=== PATIENT | female | born 1950 | race Caucasian/White ===

== ENCOUNTER → 2017-12-31 08:07 | Outpatient (CLI) | payer OTHER, SELFPAY ==
[2017-09-19 22:00] VITALS: BMI 38.7
--- NOTE | 2017-12-31 | DI.MRI.S_ITS ---
PROCEDURE: MR LUMBAR SPINE WO CON INDICATIONS: LUMBAR RADICULOPATHY TECHNIQUE: Noncontrast sagittal T1 spin echo and T2 fast echo, sagittal STIR, axial T1 and T2 fast spin echo through the lumbar spine. In cases with scoliosis, additional coronal T2 fast spin echo may be performed. COMPARISON: None. FINDINGS: Image quality: Excellent. Alignment and Curvature: There is trace anterolisthesis of L4 on L5. Bone Marrow: Marrow is of normal overall signal. No acute vertebral body compression fractures. Spinal Cord: Conus medullaris terminates at the L2 level. Visualized cord demonstrates normal signal and size. Paraspinous Soft Tissues: No paravertebral masses. Discs: Mild desiccation is present throughout the lumbar spine. L1-L2: No disc bulge, spinal stenosis or foraminal narrowing. L2-L3: No disc bulge, spinal stenosis or foraminal narrowing. L3-L4: Mild disc bulge with moderate to severe spinal stenosis. There is prominent epidural lipomatosis. Mild left and minimal right foraminal narrowing is present. Facet and ligamentum flavum hypertrophy are present. L4-L5: Mild disc bulge with moderate to severe spinal stenosis. Epidural lipomatosis is present. There is moderate right and minimal left foraminal narrowing with facet and ligamentum flavum hypertrophy. L5-S1: Mild disc bulge with mild spinal stenosis. Mild epidural lipomatosis. Mild right foraminal narrowing with facet and ligamentum flavum hypertrophy. IMPRESSION: 1. Multiple early degenerative changes 2. Moderate to severe spinal stenosis is present L3-4 and L4-5 secondary to disc bulge, facet/ligamentum flavum arthropathy and marked contributing effect of epidural lipomatosis. 3. Foraminal narrowing is most prominent L4-5 secondary to facet arthropathy. Dictated by: Alondra Haddad M.D. on 12/31/2017 at 11:48 Approved by: Alondra Haddad M.D. on 12/31/2017 at 11:56
== END ==
PROVIDERS: PCP Family Medicine; Visit Provider Orthopaedic Surgery
DX: M51.36 Other intervertebral disc degeneration, lumbar region (principal); M99.73 Connective tissue and disc stenosis of intervertebral foramina of lumbar region; M48.061 Spinal stenosis, lumbar region without neurogenic claudication
CPT/HCPCS: 72148

== ENCOUNTER → 2019-12-27 14:00 | Outpatient (CLI) | payer OTHER, SELFPAY ==
[2017-09-19 22:00] VITALS: BMI 38.7
[2019-12-29 09:08] LABS: COVID19 Sendout Not Detected (Not Detected)
== END ==
PROVIDERS: PCP Family Medicine; Visit Provider Physician Assistant
DX: Z11.59 Encounter for screening for other viral diseases (principal)
CPT/HCPCS: 87635

== ENCOUNTER 2019-12-30 10:40 | Day surgery (SDC) | payer OTHER, SELFPAY ==
[2017-09-19 22:00] VITALS: BMI 38.7
[2019-12-30] VITALS (7 sets, daily range): BP systolic 111–150; BP diastolic 60–78; PULSE 51–60; RESP 10–16; TEMP 35.5–36.9; O2SAT 94–99; BMI 32.0
--- NOTE | 2019-12-30 | PATH_ITS ---
[facility] Accession Number: [id number] . 01 Material submitted: . PART A: gastrointestinal site - GASTRIC BX PART B: esophagus - PROXIMAL AND DISTAL ESO BX . 01 Clinical history: . [facility] [place] B: R/O EOSINOPHILIC ESOPHAGITIS . 02 Diagnosis: A. Stomach, Biopsy: Antral mucosa with reactive gastropathy. Body type mucosa with no diagnostic abnormality. Negative for Helicobacter by immunohistochemistry. Negative for intestinal metaplasia. Negative for dysplasia and malignancy. . B. Proximal and Distal Esophagus, Biopsies: Squamous and columnar mucosa with no diagnostic abnormality. Negative for intestinal metaplasia. Negative for dysplasia and malignancy. [facility] 01/04/2020 1649 Local . 02 Electronically signed: . Brianne Pace MD, Pathologist NPI- [id number] . 01 Gross description: . Part A: GASTRIC BX: Received in formalin are 2 fragment(s) of cardoso, soft tissue measuring 0.3 x 0.3 x 0.2 cm to 0.3 x 0.2 x 0.1 cm submitted entirely in 1 cassette(s) Part B: PROXIMAL AND DISTAL ESO BX: Received in formalin are 4 fragment(s) of cardoso, soft tissue measuring 0.4 x 0.2 x 0.1 cm to 0.2 x 0.1 x 0.1 cm submitted entirely in 1 cassette(s) /QBJ 12/31/2019 0300 Local . 02 Microscopic: . A. An immunohistochemical stain was performed to evaluate for Helicobacter organisms and is negative. The control stain showed appropriate reactivity. . B. An Alcian blue stain was performed to evaluate for intestinal metaplasia and is negative. The control stain showed appropriate reactivity. . * This test was developed and its performance characteristics determined by [facility]. It has not been cleared or approved by the U.S. Food and Drug Administration. The FDA has determined that such clearance or approval is not necessary. This test is used for clinical purposes. It should not be regarded as investigational or for research. . 02 Pathologist provided ICD-10: R63.4, R13.14 . 02 CPT . 445067, 957193, 596846, [id number] Performed at: 01 [facility] [address] [place] [address], [place], [place] [id number] MD Emre Burrows MD Phone: [phone] Performed at: 02 [facility] [id number] [place] [id number] MD Brianne Pace MD Phone: [phone]
[2019-12-30] MEDS: SODIUM CHLORIDE 0.9% 1,000 ML 70 ML IV (12:16)
--- NOTE | 2019-12-30 12:51 | PM.HP.1 ---
History of Present Illness History of Present Illness Date Patient Seen: 12/30/19 Time Patient Seen: 12:51 Chief complaint: SDC Narrative: Patient is a pleasant 69-year-old who presented the she was last seen by visit December 09, 2019. Since that time she continued to have trouble swallowing. She also has had unintentional weight loss but feels that her weight may have stabilized since time. She continues a soft and liquid diet. Patient History Medical History Arthritis (Acute) Depression (Acute) Fibromyalgia (Acute) Former smoker (Acute) Fracture of left upper extremity (Acute) Hypertension (Acute) Impaired functional mobility, balance, gait, and endurance (Acute) Obesity (Acute) Osteolysis (Acute) Psoriasis (Acute) Right knee pain (Acute) Skin cancer, basal cell (Acute) Sleep apnea (Acute) Thyroid disease (Acute) Surgical History H/O arthroscopic knee surgery (Acute) History of tonsillectomy (Acute) Hx of hysterectomy, total (Acute) Hx of total knee arthroplasty (Acute) S/P left unicompartmental knee replacement (Acute) Family & Social History Social History: household members family Tobacco & Substance use: Smoking Status Never smoker alcohol intake current alcohol intake frequency holiday/special occasion Substance Use Type marijuana Meds Home Medications and Allergies Home Medications Medication Instructions Recorded Confirmed Type Tirosint 75 mcg PO DAILY 09/17/17 12/30/19 History lamotrigine [Lamictal] 25 mg PO BID 09/19/17 12/30/19 History quetiapine [Seroquel] 25 mg PO QAM 09/19/17 12/30/19 History quetiapine [Seroquel] 125 mg PO 4-6XD 09/19/17 12/30/19 History sertraline [Zoloft] 50 mg PO DAILY 09/19/17 12/30/19 History trazodone 50 mg PO BEDTIME PRN 09/19/17 12/30/19 History atorvastatin 40 mg PO BEDTIME 12/30/19 12/30/19 History levothyroxine 75 mcg PO DAILY 12/30/19 12/30/19 History lisinopril 10 mg PO DAILY 12/30/19 12/30/19 History omeprazole 40 mg PO DAILY 12/30/19 12/30/19 History Allergies Allergy/AdvReac Type Severity Reaction Status Date / Time No Known Drug Allergies Allergy Verified 12/30/19 11:49 Review of Systems Review of Systems ROS: Yes All systems reviewed with the patient and are negative except as otherwise documented Exam Vital Signs (past 8 hours): - 12/30/19 12:08 Temperature 96.9 F L Pulse Rate 60 Respiratory Rate 15 Blood Pressure 121/63 Pulse Oximetry 96 Oxygen Delivery Method Room Air Const General: cooperative, healthy appearing, comfortable and well developed Orientation: alert and awake Resp Effort & Inspection: normal respiratory effort and able to speak in complete sentences Auscultation: clear to auscultation bilaterally Cardio Rate: regular rate Rhythm: regular rhythm Heart Sounds: S1 normal and S2 normal GI Palpation: soft and No tender Extrem Right lower extremity: no edema Left lower extremity: no edema Assessment & Plan Assessment & Plan narrative: 1. Esophageal dysphagia 2. Unintentional weight loss EGD today with possible dilation, further recommendations to follow
[2019-12-30] MEDS: LIDOCAINE 4% SOLN 50 ML 20 ML TOP (12:57)
[2019-12-30] MEDS: MIDAZOLAM 5 MG/5 ML VIAL IV (12:58)
[2019-12-30] MEDS: fentaNYL 250 MCG/5 ML INJ IV (12:58)
--- NOTE | 2019-12-30 13:07 | PM.OP.ENDO ---
Operative Date/Time/Diagnoses Date of procedure: 12/30/19 Procedure Notes Procedure in detail: Surgeon: Pauly Gonzales DO Procedure: Esophagogastroduodenoscopy with biopsy Preoperative diagnosis: 1. Esophageal dysphagia 2. Weight loss Postoperative diagnosis: 1. Small hiatal hernia 2. Mild gastritis, biopsy rule out H pylori 3. Normal appearing esophagus, biopsied to rule out eosinophilic esophagitis 4. Normal appearing duodenum Medications: Conscious sedation using 4 mg IV of Midazolam and 100 mcg IV of Fentanyl Preanesthesia Assessment An H and P was performed/updated and the Px?s ASA class is 2. The procedure was discussed in detail with the patient. The potential risks and complications including infection, bleeding, missed lesions, perforation, need for surgery in case of perforation, prolonged hospital stay, and were explained. A brief question and answer period was allotted and once all questions were answered, informed consent was obtained. The patient was brought back to the procedure room and placed on standard monitoring. The patient?s vital signs were monitored continuously throughout the entire procedure. Prior to starting, a timeout was performed to confirm the patient?s identity, allergies, medications, and procedure. Procedure in detail The patient was placed in left lateral decubitus position and a bite block was inserted. The tip of the upper endoscope was placed into the mouth and advanced without difficulty under direct visualization into the esophagus. Esophagus: Normal appearing esophageal mucosa, no evidence of stricture -biopsy proximal and distal esophagus rule out eosinophilic esophagitis No cause of difficulty swallowing identified Stomach: Mild antral gastritis -biopsied rule out H pylori Small sliding-type hiatal hernia noted on retroflexion Duodenum: Normal appearing duodenum The patient tolerated the procedure well and will be brought back to the recovery area to be discharged once criteria are met. The total physician intraservice time was 9min. Complications There were no complications and estimated blood loss was minimal. Recommendations: Resume previous diet Continue outPx medications Follow up pathology results If esophageal biopsies unremarkable, recommend esophageal motility testing for further evaluation. An emergency contact number was given to the patient for any complications related to the procedure
--- NOTE | 2019-12-30 14:36 | SUR.PHASEII ---
1415- Pt dcd in stable condition, ambulating gait steady, taking po fluids without problems, all dc instructions given and verbalizes understanding. iv dcd site clear. Pt dressed now and ready to go. Pt dcd via wc to private vehicle in stable condition
== END 2019-12-30 14:15 | disposition home or self-care (01) ==
PROVIDERS: PCP Physician Assistant; Referring Provider Physician Assistant; Visit Provider Student in an Organized Health Care Education/Training Program
PROC: 0DJ08ZZ Inspection of Upper Intestinal Tract, Via Natural or Artificial Opening Endoscopic (ICD-10-PCS; CPT 43235; principal; 2019-12-30 13:00)
DX: K31.9 Disease of stomach and duodenum, unspecified (principal); K44.9 Diaphragmatic hernia without obstruction or gangrene; K29.70 Gastritis, unspecified, without bleeding; F41.9 Anxiety disorder, unspecified; G47.30 Sleep apnea, unspecified; E03.9 Hypothyroidism, unspecified
CPT/HCPCS: 43239; J2250; J3010

== ENCOUNTER → 2020-02-13 08:48 | Outpatient (CLI) | payer OTHER, SELFPAY ==
[2017-09-19 22:00] VITALS: BMI 38.7
[2020-02-15 09:31] LABS: COVID19 Sendout Not Detected (Not Detect)
== END ==
PROVIDERS: PCP Physician Assistant; Visit Provider Nurse Practitioner
DX: Z11.59 Encounter for screening for other viral diseases (principal)
CPT/HCPCS: 87635